=== PATIENT | female | born 1965 | race Caucasian/White ===

== ENCOUNTER 2017-07-28 10:59 | Outpatient (CLI) | payer OTHER ==
--- NOTE | 2017-07-29 13:23 | Mammography Report ---
BILATERAL DIGITAL SCREENING MAMMOGRAM with CAD: 07/28/17 10:59:00 CLINICAL: Routine screening. COMPARISON:None available. FINDINGS: The breasts are heterogeneously dense, which may obscure small masses. No mass, architectural distortion or suspicious calcifications. IMPRESSION: No mammographic evidence of malignancy. BI-RADS CATEGORY: 1 - - Negative RECOMMENDATION: Routine mammographic screening in one year. COMMENT: Patient follow-up letters are generated by our [employer] application.
== END 2017-07-28 11:00 | disposition home or self-care (01) ==
LOC: SPVWC 10:59
PROVIDERS: ATTEND Internal Medicine
DX: Z12.31 Encounter for screening mammogram for malignant neoplasm of breast (principal)
CPT/HCPCS: 77067

== ENCOUNTER 2017-09-08 08:56 | Outpatient (CLI) | payer OTHER ==
--- NOTE | 2017-09-09 07:47 | Nuclear Medicine Report ---
NUCLEAR MEDICINE BONE SCAN INFECTION 3 PHASE History: Back pain, left sided sciatica, sacral lesions on CT performed at an outside facility. The CT images are not available. Technique: 25 mCi of technetium 99m MDP was administered. Perfusion, blood pool and delayed images were obtained. Findings: The perfusion images of the lower chest, abdomen and pelvis demonstrate normal and homogeneous perfusion with no focal area of accumulation. The blood pool images of the pelvis demonstrate normal and symmetric soft tissue uptake of the radiotracer. The delayed whole body images and coned-down images of the pelvis and calvarium demonstrate a relatively normal-appearing whole body bone scan. There is focal uptake overlying the left C2-3 facet joint consistent with degenerative change. Minimal degenerative uptake in the lumbar region. There is no abnormal uptake in the sacrum identified on bone scan. No metastatic pattern is identified. Impression: Minimal degenerative uptake as described. Otherwise, normal exam.
== END 2017-09-08 08:57 | disposition home or self-care (01) ==
LOC: NM 08:56
PROVIDERS: ATTEND Internal Medicine
DX: M54.42 Lumbago with sciatica, left side (principal); R93.7 Abnormal findings on diagnostic imaging of other parts of musculoskeletal system
CPT/HCPCS: 78315; A9503